=== PATIENT | female | born 1945 | race Caucasian/White ===

== ENCOUNTER 2016-11-27 18:54 | Emergency (ER) | payer MEDICARE, OTHER ==
[2016-11-27 18:13] LABS: BASOPHILS 0.5 %; BASOPHILS ABSOLUTE 0.03 10/3/uL (0.0-0.16); EOSINOPHILS 0.3 %; EOSINOPHILS ABSOLUTE 0.02 10/3/uL (0.0-0.53); ER CBC TAT 0 Hrs 03 Mins; HEMATOCRIT 41.1 % (36.0-48.0); HEMOGLOBIN 14.5 g/dL (12.0-16.0); IMMATURE GRANULOCYTES 0.2 %; IMMATURE GRANULOCYTES ABSOLUTE 0.01 10/3/uL (0.0-0.11); LYMPHOCYTES ABSOLUTE 1.28 10/3/uL (0.67-4.30); MEAN CORPUSCULAR VOLUME 85.1 fL (80-100); MEAN PLATELET VOLUME 10.8 fL (9.2-13.0); MONOCYTES 5.4 %; MONOCYTES ABSOLUTE 0.33 10/3/uL (0.21-1.20); NEUTROPHILS 72.6 %; NEUTROPHILS ABSOLUTE 4.42 10/3/uL (2.02-8.40); PLATELET COUNT 268 10/3/uL (150-400); RBC DISTRIBUTION WIDTH 13.7 % (12.0-16.0); RED CELL COUNT 4.83 10/6/uL (4.0-5.6); WHITE BLOOD CELLS 6.1 10/3/uL (4.5-10.5)
[2016-11-27 18:14] LABS: MANUAL DIFF NO %; MEAN CORPUS HGB CONC 35.3 g/dL (32.0-36.0)
[2016-11-27 18:29] LABS: A/G RATIO 1.3 (0.7-1.9); ALBUMIN 3.9 G/DL (3.5-5.0); ALKALINE PHOSPHATASE 74 U/L (45-117); BUN (BLOOD UREA NITROGEN) 14 MG/DL (6-23); CALCIUM, SERUM 9.5 MG/DL (8.5-10.4); CHLORIDE, SERUM 101 MMOL/L (96-112); CO2 (CARBON DIOXIDE) 29 MMOL/L (24-34); CREATININE 0.91 MG/DL (0.55-1.02); GFR AFRICAN AMERICAN 75 ML/MIN (>=60); GFR NON AFRICAN AMERICAN 64 ML/MIN (>=60); GLUCOSE, SERUM 101 MG/DL (60-99); POTASSIUM, SERUM 4.1 MMOL/L (3.5-5.3); SGOT(AST) 27 U/L (5-40); SGPT(ALT) 25 U/L (5-65); SODIUM, SERUM 137 MMOL/L (135-148); TOTAL BILIRUBIN 0.7 MG/DL (0-1.2); TOTAL PROTEIN 6.9 G/DL (6.0-8.5)
[2016-11-27 18:32] LABS: PARTIAL THROMBO TIME 29.2 SEC (22.5-37.2); PROTIME (NOT ORD) 13.1 SEC (12.0-14.5)
[~2016-11-27 18:54] MED LIST: ALEVE220 MG PO; ALFALFA PO; CALTRA600D PO; CO Q-1030 MG PO; FISH OIL300 MG PO; JUICE PLUS PO; MINOCIN50 PO; MULTIPLE VIT PO; RED YEAS1 OR; RESTASIS OPH; VITAMIN D400 UNI1 PO
[2016-11-28] MEDS ORDERED: DIOV160 PO (08:25)
[2016-11-28] MEDS ORDERED: ALEVE220 MG PO (08:25)
[2016-11-28] MEDS ORDERED: MULTIVIT/MIN PO (08:25)
[2016-11-28] MEDS ORDERED: DURAFLEX PO (08:27)
[2016-11-28] MEDS ORDERED: ALFAFA PO (08:28)
== END 2016-11-27 19:23 | disposition home or self-care (01) ==
LOC: ER 18:54
PROVIDERS: Emergency Medicine
DX: K41.90 Unilateral femoral hernia, without obstruction or gangrene, not specified as recurrent (principal); I10 Essential (primary) hypertension; J44.9 Chronic obstructive pulmonary disease, unspecified; D64.9 Anemia, unspecified; Z79.899 Other long term (current) drug therapy
CPT/HCPCS: 74176; 80053; 85025; 85610; 85730; 99284

== ENCOUNTER 2016-12-01 08:28 | Day surgery (SDC) | payer MEDICARE, OTHER ==
--- NOTE | ~2016-12-01 | OP ---
Record Of Operation [facility] [address] [place]. [address] NAME: SHAE BIRCH : 47 STATUS : [facility]#: [id number] AGE: 70 ADM/REG DATE : 12/01/16 MR#: [id number] REPORT SERV DATE: 12/02/16 DICTATED BY: JUANITO MEDINA DATE: 12/02/16 REPORT STATUS : Draft TRANSCRIBED BY: MODL DATE: 12/02/16 DATE OF PROCEDURE: 12/01/2016 PREOPERATIVE DIAGNOSIS: Indirect left inguinal hernia. POSTOPERATIVE DIAGNOSIS: Bilateral inguinal hernia. PROCEDURE: Laparoscopic reduction and mesh patch repair of bilateral inguinal hernia. SURGEON: Juanito Medina M.D. DESCRIPTION OF OPERATIVE PROCEDURE: The patient was brought to the operating suite, placed in supine position, underwent satisfactory general endotracheal anesthesia without incident. The skin of the abdomen was scrubbed, prepped, and draped in the usual sterile fashion. 0.5% Marcaine with epinephrine was utilized as supplemental local anesthesia at all intended trocar sites. Initially, an infraumbilical incision was performed dissecting through the skin and subcutaneous tissues to the infraumbilical midline. The medial aspect of the left rectus musculature was identified. An incision was made and the medial aspect of the left rectus muscle itself was identified. The left rectus muscle was retracted exposing the left posterior rectus sheath. A preperitoneal dissection balloon was inserted posterior to the left rectus sheath to the level of pubic tubercle. It was insufflated under direct camera visualization creating a preperitoneal dissection plane bilaterally. This balloon was then removed and a structural balloon was next placed and CO2 was insufflated into the preperitoneal space for pressures of 15 mmHg throughout the case. Two additional 5 mm trocars were placed in the infraumbilical midline under direct visualization. Completion of the preperitoneal dissection was performed bilaterally. On the left, there was a large indirect sac dissected free from the internal ring, and on the right, there was noted to be also a large indirect defect, both defects were reduced bilaterally and then further on the right, there was a large direct defect incarcerated just above the pubic tubercle. Eventually, the inferior epigastric vessels were skeletonized. The round ligaments were divided between Weck polymer clips and retracted. Two separately placed pieces of Bard 3DMax polypropylene mesh, size large, oriented left and right were used. They were dipped in local anesthesia, rolled up and placed in the preperitoneal space. They were unrolled over the inguinal canals bilaterally covering the Hesselbach's triangle, the inferior epigastric vessels, and the internal rings. Multiple firings of the 5 mm SorbaFix helical tacker were utilized to plicate the mesh in position. Then, the preperitoneal space was allowed to collapse and CO2 was evacuated from the preperitoneal space. Trocars were removed. The left anterior rectus sheath was closed with teypoi-lc-jonky suture of 0 Vicryl. Subcutaneous tissue closed at all sites with interrupted 4-0 Vicryl, running subcuticular stitch 4-0 Vicryl for the skin. Dermabond skin Record Of [address] [address] NAME: SHAE BIRCH : 47 STATUS : [facility] PAT#: [id number] AGE: 70 ADM/REG DATE : 12/01/16 MR#: [id number] REPORT SERV DATE: 12/02/16 DICTATED BY: JUANITO MEDINA DATE: 12/02/16 REPORT STATUS : Draft TRANSCRIBED BY: MODBishop DATE: 12/02/16 adhesive placed. The patient tolerated the procedure well and was returned to PACU in stable condition. At termination of procedure, sponge, needle, lap, and instrument counts were correct x3. ESTIMATED BLOOD LOSS: Less than 10-15 mL. WR/MODL Juanito Medina M.D. / [id number] CC: Juwan Ramos M.D.
[~2016-12-01 08:28] MED LIST changes: +ALFAFA PO; +DIOV160 PO; +DURAFLEX PO; +MULTIVIT/MIN PO
== END 2016-12-01 17:05 | disposition home or self-care (01) ==
LOC: SDC 08:28
PROVIDERS: Specialist
PROC: 0YUA4JZ Supplement Bilateral Inguinal Region with Synthetic Substitute, Percutaneous Endoscopic Approach (ICD-10-PCS; principal; 2016-12-01 10:00)
DX: K40.20 Bilateral inguinal hernia, without obstruction or gangrene, not specified as recurrent (principal); I10 Essential (primary) hypertension; Z79.1 Long term (current) use of non-steroidal anti-inflammatories (NSAID); Z79.899 Other long term (current) drug therapy; Z88.8 Allergy status to other drugs, medicaments and biological substances
CPT/HCPCS: 93005; C1726; C1727; C1781; J0690; J2250; J2405; J2710; J3010